=== PATIENT | female | born 1970 | race Caucasian/White ===

== ENCOUNTER 2017-02-04 11:50 | Emergency (ER) | payer BC ==
[2017-02-04 11:46] LABS: URINE SOURCE CLEAN CATCH
[2017-02-04 11:49] LABS: URINE APPEARANCE CLEAR; URINE BILIRUBIN NEG (NEG); URINE BLOOD NEG (NEG); URINE COLOR YELLOW; URINE GLUCOSE NEG (NORM); URINE KETONE NEG (NEG); URINE LEUKOCYTE ESTERASE NEG (NEG); URINE NITRATE NEG (NEG); URINE PROTEIN NEG (NEG); URINE SPECIFIC GRAVITY 1.015 (1.003-1.035); URINE UROBILINOGEN 0.2 MG/DL (NORM)
[2017-02-04 11:50] LABS: MICRO INDICATED? NO
== END 2017-02-04 12:27 | disposition home or self-care (01) ==
LOC: SED 11:50
PROVIDERS: Emergency Medicine
DX: S39.012A Strain of muscle, fascia and tendon of lower back, initial encounter (principal); F17.200 Nicotine dependence, unspecified, uncomplicated; Z90.49 Acquired absence of other specified parts of digestive tract; X58.XXXA Exposure to other specified factors, initial encounter; Y92.9 Unspecified place or not applicable
CPT/HCPCS: 81003; 84703; 99283

== ENCOUNTER 2017-05-26 20:08 | Emergency (ER) | payer BC ==
[~2017-05-26] VITALS: Ht 152.4 cm; Wt 45.8 kg
[2017-05-26] MEDS ORDERED: DESYREL150 M1 PO (20:22)
[2017-05-26 21:28] LABS: URINE SOURCE CLEAN CATCH
[2017-05-26 21:30] LABS: URINE APPEARANCE CLEAR; URINE BILIRUBIN NEG (NEG); URINE BLOOD NEG (NEG); URINE COLOR YELLOW; URINE GLUCOSE NEG (NORM); URINE KETONE NEG (NEG); URINE LEUKOCYTE ESTERASE TRACE (NEG); URINE NITRATE NEG (NEG); URINE PH 5.5 (5-8); URINE PROTEIN NEG (NEG); URINE SPECIFIC GRAVITY <=1.005 (1.003-1.035); URINE UROBILINOGEN 0.2 MG/DL (NORM)
[2017-05-26 21:33] LABS: MICRO INDICATED? YES
[2017-05-26 21:36] LABS: CULTURE INDICATED? YES; URINE BACTERIA NEG (NEG); URINE MUCUS PRESENT; URINE SQUAMOUS EPITHELIAL CELL FEW /[HPF]
[2017-05-26 22:02] LABS: BASOPHIL# 0.1 X10e3 (0-0.3); BASOPHIL% 1.1 % (0-2.5); EOSINOPHIL# 0.1 X10e3 (0-0.7); EOSINOPHIL% 0.6 % (0.0-7.0); HEMATOCRIT 37.8 % (35.0-45.0); HEMOGLOBIN 13.4 gm/dL (12.0-16.0); LYMPHOCYTE# 2.7 X10e3 (1.0-3.5); LYMPHOCYTE% 30.4 % (17.0-45.0); MEAN CELL VOLUME 99.6 FL (83-96); MEAN CORPUSCULAR HEMOGLOBIN 35.2 PG (28-34); MEAN CORPUSCULAR HGB CONC 35.3 g/dL (30-36); MEAN PLATELET VOLUME 10.5 FL (6.5-11.5); MONOCYTE# 0.6 X10e3 (0-1.0); MONOCYTE% 6.7 % (3.0-12.0); NEUTROPHIL# 5.4 X10e3 (1.5-7.1); NEUTROPHIL% 61.2 % (40-75); PLATELET COUNT 210 X10e3 (140-420); RED CELL DISTRIBUTION WIDTH 12.7 % (11.0-15.5); WHITE BLOOD COUNT 8.9 X10e3 (4.0-10.5)
[2017-05-26 22:03] LABS: DIFF IND NO
[2017-05-26 22:20] LABS: BUN/CREATININE RATIO 7.14; CALCIUM SERUM 8.9 mg/dL (8.4-10.2); CREATININE SERUM 0.7 mg/dL (0.6-1.4); GLOM FILT RATE Estimated 104.6 mL/min (>60); MAGNESIUM 1.9 mg/dL (1.6-3.0)
[2017-05-26 22:21] LABS: POTASSIUM 2.4 mmol/L (3.5-5.1)
== END 2017-05-27 01:28 | disposition home or self-care (01) ==
LOC: SED 20:08
PROVIDERS: Emergency Medicine
DX: T67.5XXA Heat exhaustion, unspecified, initial encounter (principal); E87.6 Hypokalemia; F17.200 Nicotine dependence, unspecified, uncomplicated
CPT/HCPCS: 36415; 80048; 81003; 83735; 84132; 84703; 85025; 87086; 87651; 96365; 96366; 99283

== ENCOUNTER 2017-07-01 17:12 | Emergency (ER) | payer BC ==
[~2017-07-01 17:12] MED LIST: DESYREL150 M1 PO
== END 2017-07-01 19:24 | disposition left against medical advice (07) ==
LOC: SED 17:12
DX: Z53.21 Procedure and treatment not carried out due to patient leaving prior to being seen by health care provider (principal)